=== PATIENT | male | born 1965 | race Caucasian/White ===

== ENCOUNTER → 2024-03-26 13:48 | Outpatient (REF) | payer BC, SELFPAY | LOC: HWRAD 13:48 | PROVIDERS: ATTENDING PHYSICIAN Orthopaedic Surgery; FAMILY PHYSICIAN Family Medicine | DX: M19.022 Primary osteoarthritis, left elbow (principal) | CPT/HCPCS: 73200 ==

== ENCOUNTER → 2025-04-30 15:24 | Outpatient (REF) | payer BC, SELFPAY | LOC: HWRAD 15:24 | PROVIDERS: ATTENDING PHYSICIAN Family Medicine | DX: M54.50 Low back pain, unspecified (principal) | CPT/HCPCS: 72110 ==

== ENCOUNTER → 2025-07-02 17:42 | Outpatient (REF) | payer BC, SELFPAY | LOC: PAVMRI 17:42 | PROVIDERS: ATTENDING PHYSICIAN Family Medicine | DX: M54.16 Radiculopathy, lumbar region (principal) | CPT/HCPCS: 72148 ==